=== PATIENT | male | born 1995 | race Caucasian/White ===

== ENCOUNTER → 2016-03-05 | Outpatient (CLI) | payer BC ==
[~2016-03-05] MED LIST: ACNE CREAM TOP; IBUP-1050 PO
--- NOTE | 2016-03-05 11:52 | DIAGNOSTIC IMAGING REPORT ---
CHEST 2 VIEWS ROUTINE CLINICAL HISTORY: Cough and fever. Influenza-like illness. COMPARISON STUDY: No previous studies for comparison. FINDINGS: Lung volumes are normal. Multifocal mild nodular opacities are noted within the right upper lobe. Left lung is clear. There is no pneumothorax or pleural effusion. Cardiac size is normal. Mediastinal contours are normal. Pulmonary vascularity is normal. IMPRESSION: Mild multifocal right upper lobe opacities suggestive of an infectious process such as bronchopneumonia. Radiographic follow up to ensure resolution is recommended. Electronically signed by: Linus Spencer M.D. 03/05/2016 11:50 AM Dictated Date/Time: 03/05/2016 11:49 AM
== END | disposition home or self-care (01) ==
LOC: C.RADBBURG 17:15
PROVIDERS: ATTEND Pediatrics
DX: R69 Illness, unspecified (principal); J02.9 Acute pharyngitis, unspecified